=== PATIENT | female | born 1950 | race African-American/Black ===

== ENCOUNTER 2016-12-23 04:59 | Inpatient (IN) ==
[2016-12-23] MEDS ORDERED: SODIUM CHLORIDE 0.9% 100 ML IV ONE (05:48)
[2016-12-23] MEDS ORDERED: ceFAZolin 1,000 MG VIAL ONE (05:48)
[2016-12-23] MEDS ORDERED: VANCOMYCIN 1,000 MG VIAL ONE (05:48)
[2016-12-23] MEDS ORDERED: VANCOMYCIN INJ 1,000 MG in SODIUM CHLORIDE 0.9% 250 ML IV ONE (06:00)
[2016-12-23] MEDS ORDERED: LACTATED RINGERS 1,000 ML IV SCH (06:30)
[2016-12-23] MEDS: LACTATED RINGERS 1,000 ML IV SCH ×2 (06:40→12:47)
[2016-12-23] MEDS ORDERED: PHENYLEPHRINE 1 MG/10 ML SYRINGE IV ONE (07:07)
[2016-12-23] MEDS ORDERED: ONDANSETRON 4 MG/2 ML VIAL ONE ×2 (07:07→11:24)
[2016-12-23] MEDS ORDERED: LIDOCAINE 1% 5 ML VIAL ONE (07:07)
[2016-12-23] MEDS ORDERED: PROPOFOL 200 MG/20 ML VIAL IV ONE ×2 (07:07→11:24)
--- NOTE | 2016-12-23 07:16 | History and Physical Update ---
History and Physical Update - History and Physical H&P was reviewed, the patient examined and there: are no changes in the patients condition since last H&P was completed.
[2016-12-23] MEDS ORDERED: TRANEXAMIC ACID 1,000 MG/10 ML VIAL IV ONE (07:59)
[2016-12-23] MEDS ORDERED: LACTULOSE 20 GM/30 ML UDCUP PO PRN (08:32)
[2016-12-23] MEDS ORDERED: diphenhydrAMINE CAP 25 MG CAPSULE PO PRN (08:32)
[2016-12-23] MEDS ORDERED: NALOXONE 0.4 MG/ML VIAL IV PRN (08:32)
[2016-12-23] MEDS ORDERED: HYDROmorphone 2 MG/1 ML VIAL IV PRN (08:32)
[2016-12-23] MEDS ORDERED: TEMAZEPAM 7.5 MG CAPSULE PO PRN (08:32)
[2016-12-23] MEDS ORDERED: BISACODYL 10 MG SUPP RECTAL PRN (08:32)
[2016-12-23] MEDS ORDERED: ONDANSETRON 4 MG/2 ML VIAL IV PRN (08:32)
[2016-12-23] MEDS ORDERED: PROMETHAZINE 25 MG/1 ML VIAL IM PRN (08:32)
[2016-12-23] MEDS ORDERED: MAGNESIUM HYDROXIDE SUSP 30 ML UDCUP PO PRN (08:32)
[2016-12-23] MEDS ORDERED: ROPIVACAINE 0.5% 30 ML VIAL ONE (08:43)
--- NOTE | 2016-12-23 09:35 | XRay Report ---
XR knee 2V RT Indication: Knee arthroplasty Comparison: None available Findings: Right knee arthroplasty has been performed. Arthroplasty components are in good position. No periprosthetic fracture seen. Impression: Knee arthroplasty as described above. PROCEDURE INTERPRETED AT [facility] DEPARTMENT OF RADIOLOGY Final Report Signed by: Dr. Doni Armendariz
[2016-12-23] MEDS ORDERED: MIDAZOLAM 2 MG/2 ML VIAL ONE (11:24)
[2016-12-23] MEDS ORDERED: KETAMINE 500 MG/10 ML VIAL ONE (11:24)
[2016-12-23] MEDS ORDERED: SODIUM CHLORIDE 0.9% 250 ML IV ONE (11:25)
[2016-12-23] MEDS: DOCUSATE SODIUM 100 MG CAPSULE PO SCH ×2 (12:39→21:19)
[2016-12-23] MEDS: POTASSIUM CHLORIDE 20 MEQ TABLET PO SCH (12:40)
[2016-12-23] MEDS: ATORVASTATIN 10 MG TABLET PO SCH (12:40)
[2016-12-23] MEDS: HYDROmorphone PCA 30 MG/30 ML SYRINGE IV SCH (12:41)
[2016-12-23] MEDS: CARVEDILOL 12.5 MG TABLET PO SCH ×2 (12:53→21:19)
[2016-12-23] MEDS: LISINOPRIL/HCTZ 10-12.5 MG TABLET PO SCH (12:53)
--- NOTE | 2016-12-23 13:33 | Anesthesia Post-Op ---
Anesthesia Post OP - Post Ansesthetic Evaluation Patient seen in post op: Yes Resp: within normal limits CV: within normal limits Mental: within normal limits Temp: within normal limits Bbmv-Jb-Pybfrpiad: within normal limits Nausea and Vomiting: within normal limits Pain: within normal limits
[2016-12-23 15:01] LABS: Basophils % 0.3 % (0.0-0.8); Eosinophils % 0.2 % (0.00-10.9); Hematocrit 32.3 VOL% (35.7-47.0); Hemoglobin 11.1 GM/DL (12.0-16.0); Immature Granulocytes % 0.3 %; Immature Granulocytes Absolute 0.03 #; Lymphocytes # 1.6 10*3/uL (1.4-4.0); Lymphocytes % 16.8 % (21.3-54.2); Mean Corpuscular HGB Conc 34.4 GM/DL (32-36); Mean Corpuscular Hemoglobin 33 PG (27-34); Mean Corpuscular Volume 94.4 FL (87-102); Mean Platelet Volume 10.1 FL (9.6-12.0); Monocytes # 0.8 10*3/uL (0.11-0.8); Monocytes % 8.2 % (1.7-12.7); Neutrophils # 7.1 10*3/uL (1.4-7.4); Neutrophils % 74.2 % (38.7-73.9); Platelet Count 226 T/CUMM (130-400); Red Blood Count 3.42 MC/CUMM (3.8-5.5); White Blood Count 9.6 T/CUMM (4-12)
[2016-12-23 15:14] LABS: Calcium 8.8 MG/DL (8.5-10.1); Osmolality,Calculated 281.4 MOS/KG (273-304); Potassium 3.8 MMOL/L (3.5-5.1)
--- NOTE | 2016-12-23 15:55 | Pulmonology Progress Note ---
Pulmonary - PN: Subj Interval history: Patient is a 66-year-old black lady that has degenerative arthritis and came in today for a right total knee replacement. She is a little overweight and has hypertension. Otherwise she is very healthy. She did well with surgery and had no trouble with anesthesia. She is alert and talking. She says her knee is starting to hurt some but otherwise she is doing okay. She did not have any trouble with surgery. Exam (Progress Note) - Constitutional Vitals: Period Temp Pulse Resp BP Sys/Edouard Pulse Ox Last 24 Hr 97.2 F-98.6 F 63-84 16-18 93-148/48-86 98-100 General appearance: no acute distress, over weight, other (She is comfortable lying in bed.) - Head Head exam: Present: normal inspection, normocephalic - Eye Eye exam: Present: EOMI. Absent: scleral icterus Pupils: Present: AJAY - ENT ENT exam: Present: normal exam - Neck Neck exam: Present: normal inspection. Absent: lymphadenopathy, thyromegaly - Respiratory Respiratory exam: Present: clear to auscultation bilaterally - Cardiovascular Cardiovascular exam: Present: regular rate and rhythm. Absent: gallop, systolic murmur - GI/Abdominal GI/Abdominal exam: Present: normal bowel sounds, soft. Absent: organomegaly, tenderness - Extremities Exam Extremities exam: Present: other (The right knee is splinted.). Absent: calf tenderness, edema - Neurological Exam Neurological exam: Present: alert, oriented X3, CN II-XII intact - Psychiatric Psychiatric exam: Present: normal affect, normal mood - Skin Skin exam: Present: warm, dry Results - Labs CBC & BMP: 12/23/16 14:32 12/23/16 14:31 Assessment and Plan (1) Degenerative arthritis Status: Acute Assessment and plan: The patient has considerable arthritis in her knees and comes in now for surgery. Current Visit: Yes (2) Status post total right knee replacement Status: Acute Assessment and plan: The patient did well with a right knee replacement today and looks quite comfortable postop. Current Visit: Yes (3) Hypertension Status: Acute Assessment and plan: The patient has hypertensive cardiovascular disease and will watch for any problems. Current Visit: Yes
--- NOTE | 2016-12-23 15:57 | Orthopedic Progress Note ---
Orthopedics - Subjective Interval history: Comfortable neurovascular intact good pulse discussed up in a.m. Exam - Constitutional Vitals: Period Temp Pulse Resp BP Sys/Edouard Pulse Ox Last 24 Hr 97.2 F-98.6 F 63-84 16-18 93-148/48-86 98-100 Results - Labs CBC & BMP: 12/23/16 14:32 12/23/16 14:31
--- NOTE | 2016-12-23 16:56 | Operative Note ---
DATE OF SURGERY: 12/23/2016 PREOPERATIVE DIAGNOSIS: OSTEOARTHRITIS, RIGHT KNEE POSTOPERATIVE DIAGNOSIS: SAME. OPERATIVE PROCEDURE: RIGHT TOTAL KNEE ([place]). SURGEON: Garland Marie Jr., MD BUILDING MAINTENANCE WORKER: Dr. Romeo. ANESTHESIA: Spinal. INDICATION: A 66-year-old black female with severe osteoarthritis to her right knee. She has maximi zed conservative treatments through the years. She has had progressively worsening pain and deformit y presenting today for elective right total knee. OPERATIVE PROCEDURE: The patient was taken to the operating room and under spinal anesthetic, positi oned in supine position. The right lower extremity was prepped and draped in usual sterile manner. She received Ancef and vancomycin preoperatively. The limb was elevated, exsanguinated, and the tour niquet inflated to 300 mmHg. A midline incision was made over the anterior aspect of the right knee. Sharp dissection was carried down through skin and subcutaneous tissue. A median parapatellar arth rotomy performed with the knee revealing extensive tricompartmental degenerative changes worse latera lly. Intramedullary alignment guides were used to make the appropriate cut to the distal femur and p roximal tibia. The femur was sized to a 5 and the tibia to a 4. A 6 mm fixed bearing selected with the PCL being retained. The patella resurfaced with a 32 button. After removal of the trial compone nts, all three components were cemented into place. The wound then irrigated and closed with two 1/8 th-inch Hemovac drains in a standard fashion #1 Vicryl for the arthrotomy, 2-0 Vicryl for the subcuta neous layer, and cody for skin. The tourniquet was deflated during wound closure at 39 minutes. She was taken to recovery room in stable condition.
[2016-12-23] MEDS: FONDAPARINUX 2.5 MG/0.5 ML SYRINGE SUBCUT SCH (21:19)
[2016-12-24 05:29] LABS: Basophils % 0.3 % (0.0-0.8); Eosinophils % 0.4 % (0.00-10.9); Hematocrit 32.1 VOL% (35.7-47.0); Hemoglobin 11.1 GM/DL (12.0-16.0); Immature Granulocytes % 0.5 %; Immature Granulocytes Absolute 0.04 #; Lymphocytes # 0.9 10*3/uL (1.4-4.0); Lymphocytes % 12.5 % (21.3-54.2); Mean Corpuscular HGB Conc 34.6 GM/DL (32-36); Mean Corpuscular Hemoglobin 32 PG (27-34); Mean Corpuscular Volume 93.6 FL (87-102); Mean Platelet Volume 10.2 FL (9.6-12.0); Monocytes # 0.8 10*3/uL (0.11-0.8); Monocytes % 11.2 % (1.7-12.7); Neutrophils # 5.6 10*3/uL (1.4-7.4); Neutrophils % 75.1 % (38.7-73.9); Platelet Count 188 T/CUMM (130-400); Red Blood Count 3.43 MC/CUMM (3.8-5.5); Red Cell Distribution Width 12.2 % (9.3-17.3); White Blood Count 7.5 T/CUMM (4-12)
[2016-12-24 06:00] LABS: Calcium 8.3 MG/DL (8.5-10.1); Osmolality,Calculated 283.4 MOS/KG (273-304)
[2016-12-24] MEDS: LACTATED RINGERS 1,000 ML IV SCH (07:23)
[2016-12-24] MEDS: HYDROmorphone PCA 30 MG/30 ML SYRINGE IV SCH (08:27)
--- NOTE | 2016-12-24 08:28 | Orthopedic Progress Note ---
Orthopedics - Subjective Interval history: Hemoglobin 11 neurovascular intact comfortable drain removed ready to start PT Exam - Constitutional Vitals: Period Temp Pulse Resp BP Sys/Edouard Pulse Ox Last 24 Hr 97.2 F-98.6 F 63-91 16-20 93-146/48-86 95-100 Results - Labs CBC & BMP: 12/24/16 04:44 12/24/16 04:44
[2016-12-24] MEDS: POTASSIUM CHLORIDE 20 MEQ TABLET PO SCH (08:32)
[2016-12-24] MEDS: DOCUSATE SODIUM 100 MG CAPSULE PO SCH ×2 (08:32→20:32)
[2016-12-24] MEDS: ATORVASTATIN 10 MG TABLET PO SCH (08:32)
[2016-12-24] MEDS: LISINOPRIL/HCTZ 10-12.5 MG TABLET PO SCH (08:32)
[2016-12-24] MEDS: CARVEDILOL 12.5 MG TABLET PO SCH ×2 (08:32→20:32)
--- NOTE | 2016-12-24 12:20 | Pathology Report from [facility] ---
[facility] [id number] PATIENT NAME : Rosanna Rivera ORDERING DR : MOOKIE MARCELO JR, MD CLINICAL HX: RT knee osteoarthritis POST-OP DX: Same SPECIMEN INFO: RT knee bone & tissue GROSS DESCRIPTION: The specimen is received in formalin labeled ROSANNA RIVERA consists of an aggregate of bone, soft tissue and cartilage measuring 14.0 x 5.0 cm. The articular surfaces are focally degenerative. There is sub subchondral eburnation seen. Web [employer] Specialist tissue is submitted in one cassette. DIAGNOSIS FOR ROSANNA RIVERA: Fragments of right knee joint showing changes of degenerative joint disease/ osteoarthritis. COLLECTED DATE: 12/23/2016 [facility] REPORT DATE: 12/24/2016 ELECTRONICALLY SIGNED BY: Ethan Garcia M.D. 12/24/2016 - 10:08:24 [facility]
--- NOTE | 2016-12-24 12:46 | Pulmonology Progress Note ---
Pulmonary - PN: Subj Interval history: Patient is a 66-year-old black lady that has degenerative arthritis and came in yesterday for a right total knee replacement. She is a little overweight and has hypertension. Otherwise she is very healthy. She did well with surgery and had no trouble with anesthesia. She was uncomfortable last night lying in 1 position but she is feeling better today. She is starting to move her knee a little better. She says the pain is less. Overall she is feeling fairly well. Exam (Progress Note) - Constitutional Vitals: Period Temp Pulse Resp BP Sys/Edouard Pulse Ox Last 24 Hr 97.3 F-98.6 F 71-91 16-20 122-153/62-79 95-99 Exam: General appearance: no acute distress, over weight, other (She is comfortable sitting up today.) - Head Head exam: Present: normal inspection, normocephalic - Eye Eye exam: Present: EOMI. Absent: scleral icterus Pupils: Present: AJAY - ENT ENT exam: Present: normal exam - Neck Neck exam: Present: normal inspection. Absent: lymphadenopathy, thyromegaly - Respiratory Respiratory exam: Present: clear to auscultation bilaterally, she has good breath sounds bilaterally. - Cardiovascular Cardiovascular exam: Present: regular rate and rhythm. Absent: gallop, systolic murmur - GI/Abdominal GI/Abdominal exam: Present: normal bowel sounds, soft. Absent: organomegaly, tenderness - Extremities Exam Extremities exam: Present: other (The right knee is splinted.). Absent: calf tenderness, edema - Neurological Exam Neurological exam: Present: alert, oriented X3, CN II-XII intact, she is moving her leg better now. - Psychiatric Psychiatric exam: Present: normal affect, normal mood - Skin Skin exam: Present: warm, dry Results - Labs CBC & BMP: 12/24/16 04:44 12/24/16 04:44 Assessment and Plan (1) Degenerative arthritis Status: Acute Assessment and plan: The patient has considerable arthritis in her knees and comes in for knee replacement. Current Visit: Yes (2) Status post total right knee replacement Status: Acute Assessment and plan: The patient did well with a right knee replacement and is fairly stable postop. She will start vigorous physical therapy. Current Visit: Yes (3) Hypertension Status: Acute Assessment and plan: The patient has hypertensive cardiovascular disease and will watch for any problems. She is stable medically. Current Visit: Yes
[2016-12-24] MEDS: FONDAPARINUX 2.5 MG/0.5 ML SYRINGE SUBCUT SCH (20:32)
[2016-12-25 05:40] LABS: Basophils # 0.1 10*3/uL (0.0-0.2); Basophils % 0.6 % (0.0-0.8); Eosinophils # 0.2 10*3/uL (0.0-0.87); Eosinophils % 2.3 % (0.00-10.9); Hematocrit 33.1 VOL% (35.7-47.0); Hemoglobin 11.5 GM/DL (12.0-16.0); Immature Granulocytes % 0.6 %; Immature Granulocytes Absolute 0.05 #; Lymphocytes # 1.2 10*3/uL (1.4-4.0); Lymphocytes % 14.1 % (21.3-54.2); Mean Corpuscular HGB Conc 34.7 GM/DL (32-36); Mean Corpuscular Hemoglobin 33 PG (27-34); Mean Corpuscular Volume 93.5 FL (87-102); Mean Platelet Volume 10.5 FL (9.6-12.0); Monocytes # 0.7 10*3/uL (0.11-0.8); Monocytes % 8.3 % (1.7-12.7); Neutrophils # 6.4 10*3/uL (1.4-7.4); Neutrophils % 74.1 % (38.7-73.9); Platelet Count 181 T/CUMM (130-400); Red Blood Count 3.54 MC/CUMM (3.8-5.5); Red Cell Distribution Width 12.1 % (9.3-17.3); White Blood Count 8.6 T/CUMM (4-12)
--- NOTE | 2016-12-25 07:14 | Orthopedic Progress Note ---
Orthopedics - Subjective Interval history: Hemoglobin 11.5 some mild nausea this morning PT went fairly well yesterday continue discharge planning in progress for rehab Exam - Constitutional Vitals: Period Temp Pulse Resp BP Sys/Edouard Pulse Ox Last 24 Hr 96.3 F-99.1 F 86-97 17-20 117-153/71-78 93-96 Results - Labs CBC & BMP: 12/25/16 04:09 12/24/16 04:44
[2016-12-25] MEDS: CARVEDILOL 12.5 MG TABLET PO SCH ×2 (08:28→21:02)
[2016-12-25] MEDS: LISINOPRIL/HCTZ 10-12.5 MG TABLET PO SCH (08:28)
[2016-12-25] MEDS: POTASSIUM CHLORIDE 20 MEQ TABLET PO SCH (08:28)
[2016-12-25] MEDS: DOCUSATE SODIUM 100 MG CAPSULE PO SCH ×2 (08:28→21:01)
[2016-12-25] MEDS: ATORVASTATIN 10 MG TABLET PO SCH (08:28)
--- NOTE | 2016-12-25 08:57 | Pulmonology Progress Note ---
Pulmonary - PN: Subj Interval history: Patient is a 66-year-old black lady that has degenerative arthritis and came in yesterday for a right total knee replacement. She says she starting to feel better and her knee pain is better. She did do some physical therapy yesterday. She is eating and overall feels well. Exam (Progress Note) - Constitutional Vitals: Period Temp Pulse Resp BP Sys/Edouard Pulse Ox Last 24 Hr 96.3 F-99.8 F 86-104 17-20 117-168/71-85 93-96 Exam: General appearance: no acute distress, over weight, other (She is comfortable sitting up today. She looks like she feels much better today.) - Head Head exam: Present: normal inspection, normocephalic - Eye Eye exam: Present: EOMI. Absent: scleral icterus Pupils: Present: AJAY - ENT ENT exam: Present: normal exam - Neck Neck exam: Present: normal inspection. Absent: lymphadenopathy, thyromegaly - Respiratory Respiratory exam: Present: clear to auscultation bilaterally, she has good breath sounds bilaterally. - Cardiovascular Cardiovascular exam: Present: regular rate and rhythm. Absent: gallop, systolic murmur - GI/Abdominal GI/Abdominal exam: Present: normal bowel sounds, soft. Absent: organomegaly, tenderness - Extremities Exam Extremities exam: Present: other (The right knee is splinted. She has no increased leg swelling.). Absent: calf tenderness, edema - Neurological Exam Neurological exam: Present: alert, oriented X3, CN II-XII intact, she is moving her leg better now. - Psychiatric Psychiatric exam: Present: normal affect, normal mood - Skin Skin exam: Present: warm, dry Results - Labs CBC & BMP: 12/25/16 04:09 12/24/16 04:44 Assessment and Plan (1) Degenerative arthritis Status: Acute Assessment and plan: The patient has considerable arthritis in her knees and comes in for knee replacement. She is doing well postop. Current Visit: Yes (2) Status post total right knee replacement Status: Acute Assessment and plan: The patient did well with a right knee replacement and is fairly stable postop. She is moving around better and her knee pain is better. She will continue with physical therapy. Current Visit: Yes (3) Hypertension Status: Acute Assessment and plan: The patient has hypertensive cardiovascular disease and will watch for any problems. She is stable medically. Current Visit: Yes
--- NOTE | 2016-12-25 09:58 | Discharge Summary ---
Hospital Course - Hospital Course Hospital Course: Admitted for elective right total knee discharged to rehab swing bed Diagnosis - Discharge Diagnosis (1) Osteoarthritis of right knee Status: Acute Discharge Plan - Discharge Data Disposition: Swing Bed, [facility] Based, [facility] Keli Condition at Discharge: Stable Discharge Diet: advance to your usual diet Activity: ambulate only with your walker, as per physical therapy, increase activity as tolerated Hygiene: may shower, keep area(s) dry Weight Bearing at Discharge: weight bear as tolerated - Discharge Medications New Fondaparinux [Arixtra] 2.5 mg SUBCUT Q24H syringe HYDROcodone/ACETAMIN 7.5-325 [[place] 7.5-325] 1 tablet PO Q4H PRN #25 tablet PRN Reason: Pain Moderate (4-7) Continue Atorvastatin [Lipitor] 10 mg PO DAILY Meloxicam 15 mg PO DAILY Carvedilol [Coreg] 12.5 mg PO BID Potassium Chloride 20 meq PO DAILY Lisinopril/Hydrochlorothiazide [Lisinopril-Hctz 20-12.5 mg Tab] 1 each PO DAILY - Follow Up or Referral - Forms/Instructions Additional Discharge Instructions: Discharge or rehab/swing bed continue with home medications [place] for pain Arixtra 1 more week and switch to enteric- coated aspirin a day. [place] to be removed and wound Steri-Stripped on January 05. Weightbearing as tolerated per total knee protocol with CPM follow-up with me 4 week Exam - Constitutional Vitals: Period Temp Pulse Resp BP Sys/Edouard Pulse Ox Last 24 Hr 96.3 F-99.8 F 86-104 17-20 117-168/71-85 93-96 Discharge Results Labs on day of discharge: Labs from last 24 hours 12/25/16 04:09 WBC 8.6 RBC 3.54 L Hgb 11.5 L Hct 33.1 L MCV 93.5 MCH 33 MCHC 34.7 RDW 12.1 Plt Count 181 MPV 10.5 Neut % (Auto) 74.1 H Lymph % (Auto) 14.1 L Swain % (Auto) 8.3 Eos % (Auto) 2.3 Baso % (Auto) 0.6 Neut # (Auto) 6.4 Lymph # (Auto) 1.2 L Swain # (Auto) 0.7 Eos # (Auto) 0.2 Baso # (Auto) 0.1 Immature Gran % 0.6 Nucleated RBC % 0.0 Immature Gran # 0.05 Nucleated RBCs # 0.00 Immature Plt Fraction 0.0 DS: Provider Date of admission: 12/23/16 04:59 Primary care physician: KANCHAN Ma Attending physician on admission: Garland Marie Jr., MD Consults: 12/23/16 08:33 Consult to Case Mgmt/Social Srvs [CONS] Routine Reason for Case Mgmt/Social Srvs: Rehab Home Health Equipment Consult Comment: Bedside Commode, CPM, Walker Consult to Occupational Therapy [CONS] Routine Reason for Occupational Therapy: Evaluate and Treat Consult Comment: ADL's Consult to Physical Therapy [CONS] Routine Reason for Physical Therapy: Evaluate and Treat Gait Training Consult Comment: wbat 12/23/16 08:35 Consult to Physician [CONS] Routine Comment: Consulting Provider: Tobias Clarke Consulting Provider Notified: Yes When should Consulting Provider be notified: Now Person Notified: deepti goss Date Notified: 12/23/16 Time Notified: 10:15 12/23/16 10:15 Consult to Pastoral Services [CONS] Routine Comment: Pastoral Screen: Request Steel [employer]acer Visit Pastoral Screen Source of Request: Patient Discharging clinician: Garland Marie Jr., MD
--- NOTE | 2016-12-25 14:23 | Case Mgmt Physician Query Form ---
TB Signs and Symptoms Screening ([place]) INSTRUCTIONS: To be completed annually on residents/staff with a significant Tuberculin Skin Test (TST) upon admission/hire or a prior significant TST. To be completed on all staff at hire. Please respond to each listed symptom with an (X) in either the "YES" or "NO" box. Do you currently have any of the following symptoms: YES NO ( ) (x ) A cough If yes, is it: ( ) Productive ( ) Non- productive ( ) (x ) Hemoptysis (spitting up blood) ( ) ( x) Chest pains ( ) (x ) Weight Loss ( ) (x ) Fever ( ) ( x) Night Sweats ( ) ( x) Weakness ( ) (x ) Loss of Appetite ( ) ( x) Difficulty Breathing If you answered YES" to any of the above questions, how long have symptoms been present? Comments: If you have any questions, please contact me. Thank you, Nancy Ross RN, Office : [phone] Email : [email or web address]
[2016-12-25] MEDS ORDERED: TUBERCULIN SKIN TEST 0.1 ML SYRINGE INTRADERM ONE (15:00)
[2016-12-25] MEDS: FONDAPARINUX 2.5 MG/0.5 ML SYRINGE SUBCUT SCH (20:58)
--- NOTE | 2016-12-26 07:48 | Orthopedic Progress Note ---
Assessment and Plan (1) Osteoarthritis of right knee Status: Acute Current Visit: Yes Orthopedics - Subjective Interval history: No problems ready for discharge instructed Exam - Constitutional Vitals: Period Temp Pulse Resp BP Sys/Edouard Pulse Ox Last 24 Hr 96.9 F-99.9 F 88-94 16-20 109-145/68-78 88-97 Results - Labs CBC & BMP: 12/25/16 04:09 12/24/16 04:44 Specialty Discharge - Follow Up or Referrals Follow up with: Garland Marie Jr., MD [Physician] - 01/23/17 8:30 am
[2016-12-26] MEDS: LISINOPRIL/HCTZ 10-12.5 MG TABLET PO SCH (08:50)
[2016-12-26] MEDS: DOCUSATE SODIUM 100 MG CAPSULE PO SCH (08:50)
[2016-12-26] MEDS: CARVEDILOL 12.5 MG TABLET PO SCH (08:51)
[2016-12-26] MEDS: POTASSIUM CHLORIDE 20 MEQ TABLET PO SCH (08:51)
[2016-12-26] MEDS: ATORVASTATIN 10 MG TABLET PO SCH (08:51)
--- NOTE | 2016-12-26 09:15 | Pulmonology Progress Note ---
Pulmonary - PN: Subj Interval history: Patient is a 66-year-old black lady that has degenerative arthritis and came in for a right total knee replacement. She did well yesterday with physical therapy and feels like her leg is getting better. She is still very sore and slow moving. She is not having any other problems. She will probably go to a swing bed today. Exam (Progress Note) - Constitutional Vitals: Period Temp Pulse Resp BP Sys/Edouard Pulse Ox Last 24 Hr 96.9 F-99.9 F 88-94 16-20 109-145/68-84 88-97 Exam: General appearance: no acute distress, over weight, other (She is comfortable and moving around a little better. ) - Head Head exam: Present: normal inspection, normocephalic - Eye Eye exam: Present: EOMI. Absent: scleral icterus Pupils: Present: AJAY - ENT ENT exam: Present: normal exam - Neck Neck exam: Present: normal inspection. Absent: lymphadenopathy, thyromegaly - Respiratory Respiratory exam: Present: clear to auscultation bilaterally, she has good breath sounds bilaterally. - Cardiovascular Cardiovascular exam: Present: regular rate and rhythm. Absent: gallop, systolic murmur - GI/Abdominal GI/Abdominal exam: Present: normal bowel sounds, soft. Absent: organomegaly, tenderness - Extremities Exam Extremities exam: Present: other (The right knee looks better with less swelling.). Absent: calf tenderness, edema - Neurological Exam Neurological exam: Present: alert, oriented X3, CN II-XII intact, she is moving her leg better now. - Psychiatric Psychiatric exam: Present: normal affect, normal mood - Skin Skin exam: Present: warm, dry Results - Labs CBC & BMP: 12/25/16 04:09 12/24/16 04:44 Assessment and Plan (1) Degenerative arthritis Status: Acute Assessment and plan: The patient has considerable arthritis in her knees and comes in for knee replacement. She is doing well postop. Current Visit: Yes (2) Status post total right knee replacement Status: Acute Assessment and plan: The patient did well with a right knee replacement and is fairly stable postop. She is moving around better and her knee pain is better. She will continue with physical therapy. She says she is feeling better today and continues to do fairly well. She will likely go for rehab today. Current Visit: Yes (3) Hypertension Status: Acute Assessment and plan: The patient has hypertensive cardiovascular disease and will watch for any problems. She is stable medically. Current Visit: Yes Specialty Discharge - Follow Up or Referrals Follow up with: Garland Marie Jr., MD [Physician] - 01/23/17 8:30 am
[2016-12-26 11:15] VITALS: BP 127/88
--- NOTE | 2016-12-26 11:29 | XRay Report ---
History: Shortness of breath Date: 12/26/2016 Study: Chest x-ray AP portable Comparison exam: No previous chest x-ray available There is mild cardiomegaly. There is no mediastinal mass. The pulmonary vasculature is not engorged. The lungs and pleural spaces are generally clear for shallow breath. There is mild thoracic spondylosis. There is moderate to prominent osteophyte formation and joint space narrowing associated with either glenohumeral joint. Impression: Cardiomegaly without overt CHF. Shallow breath PROCEDURE INTERPRETED AT [facility] DEPARTMENT OF RADIOLOGY Final Report Signed by: Dr. Catrina Gardner
== END 2016-12-26 13:59 | disposition swing bed (61) | DRG 470 ==
LOC: EDBD → N.SDSINP 04:59 → N.3E 09:52
PROVIDERS: ADMIT Orthopaedic Surgery; ATTEND Orthopaedic Surgery